=== PATIENT | female | born 1940 | race Two or more races ===

== ENCOUNTER 2020-12-07 09:15 | Inpatient (IN) | payer OTHER ==
[~2020-12-07] VITALS: Ht 152.4 cm; Wt 69.9 kg
[2020-12-07] MEDS ORDERED: ATORVASTATIN CA40 MG PO (13:03)
[2020-12-07] MEDS ORDERED: ZETIA10 MG PO (13:04)
[2020-12-07] MEDS ORDERED: TOPROL XL25 M1 PO (13:05)
[2020-12-07] MEDS ORDERED: LEVOXYL75 MCG PO (13:05)
[2020-12-07] MEDS ORDERED: LOSAR (13:06)
[2020-12-07] MEDS ORDERED: CHILDREN'S ASPI81 MG PO (13:06)
[2020-12-14] MEDS ORDERED: LOSARTAN POTASS50 MG (09:42)
[2020-12-17] MEDS ORDERED: HYOSCYAMINE0.125 M1 SL (12:42)
[2020-12-17] MEDS ORDERED: INTESTINEX680 M1 PO (12:43)
[2020-12-17] MEDS ORDERED: PEPCID AC20 MG PO (12:43)
[2020-12-17] MEDS ORDERED: DICLOFENAC SODI75 MG PO (12:43)
== END 2020-12-17 13:53 | disposition home or self-care (01) | DRG 331 ==
LOC: SURH 12-14 09:08 → O/R 12-14 09:08 → SURH 12-14 09:15
PROVIDERS: ADMIT Surgery; ATTEND Surgery
PROC: 07BC4ZX Excision of Pelvis Lymphatic, Percutaneous Endoscopic Approach, Diagnostic (ICD-10-PCS; 2020-12-14)
PROC: 0DTF4ZZ Resection of Right Large Intestine, Percutaneous Endoscopic Approach (ICD-10-PCS; principal; 2020-12-14 13:15)
DX: C18.2 Malignant neoplasm of ascending colon (principal); Z20.822 Contact with and (suspected) exposure to COVID-19; R59.0 Localized enlarged lymph nodes

== ENCOUNTER 2020-12-24 10:28 | Emergency (ER) | payer OTHER ==
[~2020-12-24] VITALS: Ht 152.4 cm; Wt 68.5 kg
[~2020-12-24 10:28] MED LIST: ATORVASTATIN CA40 MG PO; CHILDREN'S ASPI81 MG PO; DICLOFENAC SODI75 MG PO; HYOSCYAMINE0.125 M1 SL; INTESTINEX680 M1 PO; LEVOXYL75 MCG PO; LOSAR; LOSARTAN POTASS50 MG; PEPCID AC20 MG PO; TOPROL XL25 M1 PO; ZETIA10 MG PO
== END 2020-12-24 13:51 | disposition home or self-care (01) ==
LOC: ER 10:28
DX: T81.89XA Other complications of procedures, not elsewhere classified, initial encounter (principal)